=== PATIENT | male | born 1960 | race Caucasian/White ===

== ENCOUNTER 2017-09-26 16:33 | Emergency (ER) | payer MEDICAID ==
[~2017-09-26] VITALS: Ht 170.2 cm; Wt 70.0 kg
[2017-09-26] MEDS ORDERED: NITROGLYCERIN OINT 1GM/INCH UDPKT TD STA (18:13)
[2017-09-26 18:57] LABS: BASOPHILS % 0.7 % (0.0-2.0); CHLORIDE 106 mEq/L (98-107); HEMATOCRIT. 34.7 % (42.0-52.0); HEMOGLOBIN. 12.1 g/dL (14.0-18.0); LYMPHOCYTES % 29.9 % (20.0-50.0); MEAN CORPUSCULAR HEMOGLOBIN 29.1 pg (28.0-32.0); MEAN CORPUSCULAR VOLUME 83.2 fL (80.0-94.0); MEAN PLATELET VOLUME 7.6 fl (7.4-10.4); MONOCYTES % 11.4 % (2.0-8.0); PLATELET 211 x1000/uL (130-400); RED BLOOD CELL COUNT 4.17 mill/uL (4.7-6.1); RED CELL DISTRIBUTION WIDTH 15.7 % (11.6-14.6)
[2017-09-26 19:00] LABS: PARTIAL THROMBOPLASTIN TIME 22.2 sec (23.4-31.0)
[2017-09-26 19:01] LABS: ETHANOL BLOOD < 10 mg/dL
[2017-09-26 20:00] VITALS: BP 142/98
[2017-09-26] MEDS ORDERED: MAGNESIUM/ALUMINUM HYDROXIDE/SIMETHICONE 30ML UDC PO PRN (21:30)
[2017-09-26] MEDS ORDERED: CLONIDINE 0.1MG TABLET PO PRN (21:30)
[2017-09-26] MEDS ORDERED: HYDROCODONE/ACETAMINOPHEN 5/325MG TABLET PO PRN (21:30)
[2017-09-26] MEDS ORDERED: IPRATROPIUM/ALBUTEROL 0.5-3(2.5)MG/3ML NEB INH PRN (21:30)
[2017-09-26] MEDS ORDERED: ONDANSETRON HCL 4MG/2ML VIAL IV PRN (21:30)
[2017-09-26] MEDS ORDERED: ACETAMINOPHEN 325MG TABLET PO PRN (21:30)
[2017-09-27] MEDS ORDERED: AMLODIPINE 10MG TABLET PO SCH (09:00)
[2017-09-27] MEDS ORDERED: ASPIRIN 81MG EC TABLET PO SCH (09:00)
== END 2017-09-26 21:55 | disposition left against medical advice (07) ==
LOC: ER 16:40 → SUPCPDRO 21:26 → CANBEDREQ 21:32 → ER 21:55
DX: R07.89 Other chest pain (principal); F15.10 Other stimulant abuse, uncomplicated; F20.9 Schizophrenia, unspecified; F17.210 Nicotine dependence, cigarettes, uncomplicated
CPT/HCPCS: 36415; 71045; 80053; 83880; 84484; 85025; 85610; 85730; 93005; 99285; G0482; Z7610

== ENCOUNTER 2020-06-27 12:35 | Emergency (ER) | payer MEDICAID ==
[~2020-06-27] VITALS: Ht 172.7 cm; Wt 70.0 kg
[2020-06-27 13:05] VITALS: BP 100/72
[2020-06-27] MEDS ORDERED: LIDOCAINE HCL/PF 1% 10 MG/ML 5ML VIAL IJ ONE (13:15)
== END 2020-06-27 13:25 | disposition left against medical advice (07) ==
LOC: ER 12:45
DX: R07.89 Other chest pain (principal); L02.211 Cutaneous abscess of abdominal wall; I10 Essential (primary) hypertension; F11.10 Opioid abuse, uncomplicated; F15.10 Other stimulant abuse, uncomplicated
CPT/HCPCS: 93005; 99283

== ENCOUNTER 2021-09-04 19:28 | Inpatient (IN) | payer MEDICAID ==
[~2021-09-04] VITALS: Ht 182.9 cm; Wt 64.9 kg
[2021-09-04] MEDS ORDERED: ACETAMINOPHEN 325MG TABLET PO STA (22:29)
[2021-09-04] MEDS ORDERED: PIPERACILLIN/TAZ 3.375G PREMIX 50 ML IV ONE (22:30)
[2021-09-04] MEDS ORDERED: SODIUM CHLORIDE 0.9% 1,000 ML IV ONE (22:30)
[2021-09-04] MEDS ORDERED: VANCOMYCIN 1G PREMIX 200 ML IV ONE (22:30)
[2021-09-04 23:35] LABS: BASOPHILS % 0.2 % (0.0-2.0); EOSINOPHILS % 1.3 % (0.0-5.0); HEMATOCRIT. 25.4 % (42.0-52.0); HEMOGLOBIN. 8.5 g/dL (14.0-18.0); LYMPHOCYTES % 18.6 % (20.0-50.0); MEAN CORPUSCULAR HEMOGLOBIN 27.2 pg (28.0-32.0); MEAN PLATELET VOLUME 7.3 fl (7.4-10.4); MONOCYTES % 11.1 % (2.0-8.0); NEUTROPHILS % 68.8 % (40.0-76.0); PLATELET 540 x1000/uL (130-400); RED BLOOD CELL COUNT 3.14 mill/uL (4.7-6.1); RED CELL DISTRIBUTION WIDTH 24.3 % (11.6-14.6)
[2021-09-04 23:42] LABS: CHLORIDE 112 mEq/L (98-107)
[2021-09-04 23:42] LABS: CLARITY URINE CLEAR (CLEAR); COLOR URINE YELLOW (YELLOW); KETONES URINE NEGATIVE (NEGATIVE); LEUKOCYTE ESTERASE URINE NEGATIVE (NEGATIVE); NITRITE URINE NEGATIVE (NEGATIVE); OCCULT BLOOD URINE NEGATIVE (NEGATIVE); PROTEIN URINE NEGATIVE (NEGATIVE); SPECIFIC GRAVITY URINE 1.017 (1.005-1.030); UROBILINOGEN URINE 0.2 E.U./dL (0.2-1.0)
[2021-09-05] MEDS ORDERED: HYDROCODONE/ACETAMINOPHEN 5/325MG TABLET PO PRN (00:30)
[2021-09-05] MEDS: VANCOMYCIN 1GM PMX (XELLIA) 200 ML IV SCH ×3 (03:10→03:38)
[2021-09-05] MEDS ORDERED: NALOXONE HCL 0.4 MG/ML 1ML VIAL IV PRN (05:15)
[2021-09-05 08:00] VITALS: BP 129/86
[2021-09-05 08:31] VITALS: BP 129/86
[2021-09-05] MEDS: PIPERACILLIN/TAZOBACTAM 3.375 G in DEXTROSE 5% WATER 50 ML IV SCH ×3 (08:58→22:00)
[2021-09-05 10:38] LABS: BASOPHILS % 0.2 % (0.0-2.0); EOSINOPHILS % 1.4 % (0.0-5.0); HEMATOCRIT. 23.9 % (42.0-52.0); HEMOGLOBIN. 7.8 g/dL (14.0-18.0); LYMPHOCYTES % 9.9 % (20.0-50.0); MEAN CORPUSCULAR HEMOGLOBIN 27.1 pg (28.0-32.0); MEAN CORPUSCULAR VOLUME 83.6 fL (80.0-94.0); MEAN PLATELET VOLUME 7.5 fl (7.4-10.4); MONOCYTES % 7.9 % (2.0-8.0); NEUTROPHILS % 80.6 % (40.0-76.0); PLATELET 425 x1000/uL (130-400); RED BLOOD CELL COUNT 2.86 mill/uL (4.7-6.1); RED CELL DISTRIBUTION WIDTH 23.9 % (11.6-14.6)
[2021-09-05 10:45] LABS: CHLORIDE 114 mEq/L (98-107)
[2021-09-05] MEDS: VANCOMYCIN 500MG PREMIX 100 ML IV SCH ×2 (11:00→21:18)
[2021-09-05 12:00] VITALS: BP 131/71
[2021-09-05] MEDS: HYDROCODONE/ACETAMINOPHEN 10/325MG TABLET PO PRN (14:07)
[2021-09-05] MEDS ORDERED: VANCOMYCIN 1GM PMX (XELLIA) 200 ML IV SCH (15:00)
[2021-09-05 16:00] VITALS: BP 134/81
[2021-09-05 20:00] VITALS: BP 130/77
[2021-09-05 20:06] LABS: *AMPHETAMINES SCREEN URINE NEGATIVE (NEGATIVE); *BARBITURATES SCREEN URINE NEGATIVE (NEGATIVE); *BENZODIAZEPINES SCREEN URINE NEGATIVE (NEGATIVE); *COCAINE SCREEN URINE NEGATIVE (NEGATIVE)
[2021-09-05 20:07] LABS: CANNABINOID URINE SCREEN NEGATIVE (NEGATIVE); METHADONE URINE SCREEN NEGATIVE (NEGATIVE); OPIATES URINE SCREEN PRESUMTIVE POSITIVE (NEGATIVE); PHENCYCLIDINE URINE SCREEN NEGATIVE (NEGATIVE)
[2021-09-05 21:46] LABS: PLATELET ESTIMATE INCREASED
[2021-09-06] VITALS: BP 128/74
[2021-09-06 04:00] VITALS: BP 132/76
[2021-09-06] MEDS: PIPERACILLIN/TAZOBACTAM 3.375 G in DEXTROSE 5% WATER 50 ML IV SCH ×3 (06:48→21:38)
[2021-09-06 08:00] VITALS: BP 147/85
[2021-09-06 08:00] LABS: CHLORIDE 112 mEq/L (98-107)
[2021-09-06] MEDS: HYDROCODONE/ACETAMINOPHEN 10/325MG TABLET PO PRN ×2 (11:28→20:44)
[2021-09-06 12:00] VITALS: BP 136/82
[2021-09-06] MEDS: VANCOMYCIN 1GM PMX (XELLIA) 200 ML IV SCH (12:32)
[2021-09-06 16:00] VITALS: BP 128/81
[2021-09-06] MEDS ORDERED: ZOLPIDEM TARTRATE 5MG TABLET PO PRN (19:45)
[2021-09-06 20:00] VITALS: BP 149/90
[2021-09-06] MEDS ORDERED: SODIUM HYPOCHLORITE 0.125% 473ML SOLUTION TOP SCH (21:00)
[2021-09-07] VITALS: BP 161/94
[2021-09-07] MEDS: HYDROCODONE/ACETAMINOPHEN 10/325MG TABLET PO PRN (03:36)
[2021-09-07 04:00] VITALS: BP 170/89
[2021-09-07] MEDS: VANCOMYCIN 1GM PMX (XELLIA) 200 ML IV SCH (06:26)
[2021-09-07] MEDS: PIPERACILLIN/TAZOBACTAM 3.375 G in DEXTROSE 5% WATER 50 ML IV SCH (06:26)
[2021-09-07 08:00] VITALS: BP 152/92
[2021-09-07] MEDS ORDERED: CLONIDINE 0.1MG TABLET PO NR (11:20)
[2021-09-07 12:00] VITALS: BP 144/93
[2021-09-07 12:29] VITALS: BP 144/93
[2021-09-07 13:39] LABS: CREATINE KINASE 31 IU/L (39-308)
== END 2021-09-07 14:20 | DRG 344 ==
LOC: ER 19:28 → MICUSO 23:14 → CANRESERV 09-05 01:48 → ENRESERV 09-05 01:48 → 6EST 09-05 04:39
PROVIDERS: ADMIT Internal Medicine; ATTEND Internal Medicine
DX: M00.9 Pyogenic arthritis, unspecified (principal); E43 Unspecified severe protein-calorie malnutrition; E87.8 Other disorders of electrolyte and fluid balance, not elsewhere classified; L03.116 Cellulitis of left lower limb; I10 Essential (primary) hypertension; D50.9 Iron deficiency anemia, unspecified; Z20.822 Contact with and (suspected) exposure to COVID-19; Z82.49 Family history of ischemic heart disease and other diseases of the circulatory system; Z68.1 Body mass index [BMI] 19.9 or less, adult; Z21 Asymptomatic human immunodeficiency virus [HIV] infection status; Z91.14 Patient's other noncompliance with medication regimen
CPT/HCPCS: 36415; 80048; 80053; 80202; 80305; 81003; 82550; 83605; 84145; 85025; 85651; 87426; 93005; 97162; 99285; J2543; J3370; J7030; J7060